=== PATIENT | male | born 1995 | race Caucasian/White ===

== ENCOUNTER 2017-06-28 21:29 | Emergency (ER) | payer MEDICAID, SELFPAY ==
[2017-06-28 21:30] VITALS: BP 137/95; PULSE 91; RESP 18; TEMP 36.6; O2SAT 97; BMI 27.8
--- NOTE | 2017-06-28 22:26 | RAD_ITS ---
STUDY: X-RAY CHEST REASON FOR EXAM: Male, 22 years old. Shortness of breath, cough TECHNIQUE: Frontal and lateral views of the chest. COMPARISON: None. FINDINGS: The lungs are clear and expanded. There is no demonstrated pleural abnormality. Normal size heart. Normal mediastinum and anne. Normal visualized pulmonary arteries. Normal visualized aortic arch and descending thoracic aorta. Normal visualized thoracic spine. Normal visualized ribs, clavicles, and shoulders. There is no demonstrated abnormality of the visualized soft tissue structures of the upper abdomen. RAD/Chest PA and Lateral IMPRESSION: No acute cardiopulmonary disease. Electronically Signed: Arcadio Cortez DO at 23:45 EDT , Service support ,
[2017-06-28] MEDS: Famotidine 20 MG Tablet 40 MG PO (23:22)
[2017-06-28 23:39] LABS: Absolute Lymphocyte Count 3.42 X10^3/ul (0.83-4.51); Absolute Neutrophil Count 3.1 X10^3/uL (2.0-7.7); Basophil# 0.03 X10^3/uL; Basophil% 0.4 % (0-1); Eosinophil# 0.23 X10^3/uL; Eosinophils% 3.1 % (0-5); Hematocrit 45.1 % (40-54); Lymphocyte # 3.42 X10^3/ul (4.0); Lymphocyte % 45.5 % (19-41); Mean Corp Hgb Conc 33.3 g/gl (32-36); Mean Corpuscular Hgb 29.9 pg (27.0-32.0); Mean Corpuscular Volume 89.8 fL (80-94); Mean Platelet Vol. 9.4 fl (6.2-12.0); Monocyte# 0.69 X10^3/uL; Monocyte% 9.2 % (0-10); Neutrophil # 3.13 X10^3/uL (2.7-7.7); Neutrophil % 41.5 % (47-70); Platelet Count 232 K/mm3 (150-450); RBC Distribution Width CV 12.6 % (11.6-14.6); RBC Distribution Width SD 40.6 fl (35.1-43.9); Red Blood Count 5.02 M/mm3 (4.6-6.2); White Blood Count 7.5 K/mm3 (4.4-11.0)
[2017-06-28 23:42] LABS: POSITIVE COUNT NO; POSITIVE DIFFERENTIAL NO; POSITIVE MORPHOLOGY NO
[2017-06-28 23:49] LABS: Anion Gap 6 (5-15); BUN 13 mg/dL (7-18); Calcium,Total 8.9 mg/dL (8.5-10.1); Chloride 108 mmol/L (98-107); Creatinine, Serum 0.76 mg/dL (0.70-1.30); EST Glomerular Filtration Rate 138 mL/min (>60); Est Glom Filt Rate - Afr Amer 167 mL/min (>60); Estimated Creatinine Clearance 165.13 ml/min; Glucose 96 mg/dL (74-106); Potassium 3.9 mmol/L (3.5-5.1); Sodium Level 141 mmol/L (136-145)
--- NOTE | 2017-06-28 23:54 | ED.VISSUMM ---
- ER Visit Summary Date of Service: 06/28/17 Chief Complaint: Cough History of Present Illness: The patient is a [address] Wesley. He reports that he has had a cough for the past year. Is worsened over the past month. Is now productive of white, thick sputum without blood. He denies any fever or chills. Reports that he has been wheezing. He does not have an inhaler that he uses. States he has a sore throat is 4 out of 10 severity. Patient reports that last week he woke from sleep and was unable to breathe in for a period of time. Physical Examination: Vitals: Stable. Afebrile. General: Well-nourished and well-developed. Head: Normocephalic atraumatic. Neck: Supple, no lymphadenopathy. No JVD. Nontender. Cardiovascular: Regular rate and rhythm. No murmurs. Respiratory: No respiratory distress. Clear to auscultation bilaterally. Abdominal: Soft, nontender, nondistended, normal bowel sounds. No guarding, rebound, or peritoneal signs. Back: Nontender. Extremities: Nontender, no edema. Skin: Normal color, no rash. Neurologic: Alert and oriented ?3. Cranial nerves II through XII are intact. Normal strength and sensation. Psych: Normal affect. Test Results: Chest x-ray is normal. CBC is marked for segment neutrophils of 42 lymphs at 46. Chem-7 is more for chloride 108. Emergency Department Course and Treatment: Had a prolonged discussion the patient that it sounds as though the episode sleeping last week was from laryngeal spasm. He is given a dose of Pepcid here. Treatment Plan: Patient will be discharged on Zantac and an albuterol MDI. He is instructed to stop smoking. Follow-up his primary care physician 1 week if not improving. Return to the emergency department for any worsening symptoms. Disposition: To home in improved and stable condition. Impression: 1. Chronic cough. This note was generated with [employer] dictation software. It may contain incorrect words, spelling, and punctuation that were not noted in review of the chart prior to signing ED Disposition - Plan for ED Patient: Disposition: Home or Assisted Living Chief Complaint: Cough Instructions: ED Cough Chronic Cause Unkn Prescriptions: Albuterol Inhaler [Ventolin Hfa] 1 - 2 puff INHALATION Q4H PRN PRN #1 inhaler PRN Reason: Wheezing Ranitidine HCl [Zantac] 300 mg PO DAILY #30 tablet Referrals: Rosita Anders MD [Primary Care Provider] - 1 Week if not improving
[2017-06-29 00:09] VITALS: BP 117/84; PULSE 77; RESP 18; O2SAT 96
== END 2017-06-29 00:10 | disposition home or self-care (01) ==
PROVIDERS: Emergency Provider Emergency Medicine; Family Provider Family Medicine; PCP Family Medicine
DX: R05 Cough (principal); J02.9 Acute pharyngitis, unspecified; R06.00 Dyspnea, unspecified; F17.200 Nicotine dependence, unspecified, uncomplicated
CPT/HCPCS: 36415; 71046; 80048; 85025; 99282

== ENCOUNTER 2017-12-09 04:47 | Emergency (ER) | payer SELFPAY ==
[2017-12-09 04:48] VITALS: BP 154/86; PULSE 94; RESP 16; TEMP 37.2; O2SAT 96; BMI 32.4
--- NOTE | 2017-12-09 05:05 | ED.DCSUM_ITS ---
- ER Visit Summary Date of Service: 12/09/17 Chief Complaint: [] Headache nausea muscle aches History of Present Illness: The patient is a 22 M [] constitutional symptoms for last 2 days gradual onset intermittent. He has had sore throat frontal headache that is mild and aching. Muscle aches joint pains sore throat. He had one episode of emesis tonight. He has been using ibuprofen. He had intermittent fever. He does have sick contacts Physical Examination: [] Vital signs reviewed General: Well-nourished well-developed Head: Normocephalic atraumatic Eyes: Pupils equal round and reactive to light extraocular movements intact ENT: TMs clear no hemotympanum no trauma Neck: Nontender full range of motion Cardiovascular: Regular rate rhythm no murmurs normal S1-S2 Respiratory: No distress clear to auscultation bilaterally chest nontender Abdomen: Soft nontender nondistended normal bowel sounds no masses Back: Nontender no CVA tenderness Extremities: Nontender active range of motion ?4 extremities no trauma Skin: Normal color no trauma Neuro alert oriented cranial nerves II through XII intact normal strength sensation reflexes Test Results: [] Emergency Department Course and Treatment: [] This time I feel the patient has a viral syndrome. He did not want anything for anti-inflammatory. He broke his temperature. It is negative. Resting comfortably. Throat and ears normal lungs are clear. Heart exam normal. Patient given oral Zofran. Will be given a prescription for Zofran and will follow-up Treatment Plan: [] Disposition: [] Impression: [] Viral syndrome This note was generated with [employer] dictation software. It may contain incorrect words, spelling, and punctuation that were not noted in review of the chart prior to signing ED Disposition - Plan for ED Patient: Chief Complaint: General Illness Referrals: Rosita Anders MD [Primary Care Provider] -
--- NOTE | 2017-12-09 05:05 | ED.DEP ---
ED Disposition - Plan for ED Patient: Disposition: Home or Assisted Living Chief Complaint: General Illness Instructions: ED Viral Syndrome Prescriptions: Ondansetron [Zofran Odt] 4 mg PO Q8H PRN PRN #10 tab PRN Reason: Nausea Referrals: Rosita Anders MD [Primary Care Provider] -
[2017-12-09] MEDS: Ondansetron ODT 4 MG Tablet 8 MG PO (05:11)
[2017-12-09 05:13] VITALS: BP 154/86; PULSE 94; RESP 16; O2SAT 94
== END 2017-12-09 05:14 | disposition home or self-care (01) ==
PROVIDERS: Emergency Provider Emergency Medicine; Family Provider Family Medicine; PCP Family Medicine
DX: B34.9 Viral infection, unspecified (principal); J02.9 Acute pharyngitis, unspecified; R11.0 Nausea; R51 Headache; M79.1 Myalgia; Z72.0 Tobacco use
CPT/HCPCS: 99283

== ENCOUNTER 2018-05-02 18:23 | Emergency (ER) | payer OTHER, SELFPAY ==
[2018-05-02 18:23] VITALS: BP 155/75; PULSE 106; RESP 16; TEMP 37.2; O2SAT 97; BMI 30.7
--- NOTE | 2018-05-02 19:13 | EKG12_ITS ---
Test Reason : CP Blood Pressure : / mmHG Vent. Rate : 093 BPM Atrial Rate : 093 BPM P-R Int : 144 ms QRS Dur : 092 ms QT Int : 342 ms P-R-T Axes : 049 073 024 degrees QTc Int : 425 ms Normal sinus rhythm Normal ECG Confirmed by JAYLIN CARRINGTON, HAILEY ([id number]), city editor CHINYERE KENDALL ([id number]) on 05/08/2018 11:15:21 AM Referred By: DAYAN MANZANO Confirmed By:HAILEY MOSQUEDA MD
--- NOTE | 2018-05-02 19:13 | ED.VISSUMM ---
- ER Visit Summary Date of Service: 05/02/18 Chief Complaint: Right leg pain History of Present Illness: The patient is a 22 M presenting with right leg pain. He states this started this morning he woke up with pain in his right lower leg. He denies injury. He is a box truck washer. Denies other PE/DVT risk factors. He also complains of chest pain that has been intermittent for the past 8 months. He denies shortness of breath. He is a smoker. Denies other complaints. Physical Examination: Vitals are stable. Patient is afebrile. Alert no acute distress. HEENT exam is unremarkable. Neck is supple. Lungs are clear and equal bilaterally. Heart is regular rate and rhythm. Abdomen is soft nontender nondistended. Extremities mild right calf tenderness. No erythema or warmth. No swelling. Normal distal pulses. Active full range of motion. Skin is warm and dry. No focal neurologic deficit. Remainder of exam is unremarkable. Emergency Department Course and Treatment: EKG is sinus rate of 93 with no acute ischemic changes. Chest x-ray shows no acute process. Ultrasound of the right lower extremity shows no evidence of DVT. CBC, chemistries unremarkable. Troponin is negative. D-dimer negative. On reevaluation, patient is resting comfortably. He states pain is positional. He is advised to use NSAIDs. Advised to follow with primary care physician. Advised to return to ED if worsening complaints. Disposition: Discharge home Impression: Right leg pain This note was generated with [facility] dictation software. It may contain incorrect words, spelling, and punctuation that were not noted in review of the chart prior to signing ED Disposition - Plan for ED Patient: Instructions: ED Muscle Pain Leg Cramps Referrals: Raul Rosario MD [STAFF PHYSICIAN] -
--- NOTE | 2018-05-02 19:18 | US_ITS ---
STUDY: VENOUS DOPPLER ULTRASOUND - RIGHT LOWER EXTREMITY REASON FOR EXAM: Male, 22 years old. Anterior foot and medial thigh pain. TECHNIQUE: Ultrasound evaluation of the deep vein system to include nguyễn-scale imaging and compression was performed. Nguyễn-scale imaging and Doppler sonographic evaluation, including duplex spectral analysis and qualitative color flow sonography, was performed. COMPARISON: None. FINDINGS: Common femoral, femoral, and popliteal veins are patent with no evidence of luminal thrombus. Deep venous structures respond normally to compression and augmentation maneuvers. Normal color Doppler. Visualized calf veins are patent. US/Venous Duplex Imag/Limited/Uni IMPRESSION: Normal venous Doppler ultrasound of the lower extremity. Electronically Signed: Erin Dixon MD at 20:24 EST Tel , Service support ,
--- NOTE | 2018-05-02 19:41 | RAD_ITS ---
STUDY: X-RAY CHEST REASON FOR EXAM: Male, 22 years old. Chest pain. TECHNIQUE: Portable chest. COMPARISON: 06/28/2017. FINDINGS: The lungs are clear and expanded. There is no demonstrated pleural abnormality. Normal size heart. Normal mediastinum and anne. Normal visualized pulmonary arteries. Normal visualized aortic arch and descending thoracic aorta. Normal visualized thoracic spine. Normal visualized ribs, clavicles, and shoulders. There is no demonstrated abnormality of the visualized soft tissue structures of the upper abdomen. RAD/Chest 1 View (Portable) IMPRESSION: Normal x-ray examination of the chest. Electronically Signed: Erin Dixon MD at 20:21 EST Tel , Service support ,
[2018-05-02 19:45] LABS: Absolute Neutrophil Count 5.4 X10^3/uL (2.0-7.7); Basophil# 0.04 X10^3/uL; Basophil% 0.4 % (0-1); Eosinophil# 0.23 X10^3/uL; Eosinophils% 2.2 % (0-5); Hematocrit 46.4 % (40-54); Hemoglobin 15.5 g/dl (13.0-16.5); Lymphocyte % 34.9 % (19-41); Mean Corp Hgb Conc 33.4 g/gl (32-36); Mean Corpuscular Hgb 29.8 pg (27.0-32.0); Mean Corpuscular Volume 89.2 fL (80-94); Mean Platelet Vol. 9.7 fl (6.2-12.0); Monocyte% 9.7 % (0-10); Neutrophil # 5.42 X10^3/uL (2.7-7.7); Neutrophil % 52.6 % (47-70); Platelet Count 267 K/mm3 (150-450); RBC Distribution Width CV 12.6 % (11.6-14.6); RBC Distribution Width SD 40.2 fl (35.1-43.9); White Blood Count 10.3 K/mm3 (4.4-11.0)
[2018-05-02 19:47] LABS: Anion Gap 9 (5-15); BUN 13 mg/dL (7-18); BUN/Creat Ratio 14.6 RATIO (10-20); Chloride 106 mmol/L (98-107); Creatinine, Serum 0.89 mg/dL (0.70-1.30); EST Glomerular Filtration Rate 115 mL/min (>60); Est Glom Filt Rate - Afr Amer 139 mL/min (>60); Estimated Creatinine Clearance 141.01 ml/min; Glucose 79 mg/dL (74-106); POSITIVE COUNT NO; POSITIVE DIFFERENTIAL NO; POSITIVE MORPHOLOGY NO; Sodium Level 142 mmol/L (136-145)
[2018-05-02 19:58] LABS: D-Dimer Quantitative (DVT/PE) < 0.27 FEU/ug/m (0.27-0.49)
--- NOTE | 2018-05-02 20:43 | ED.DEP ---
ED Disposition - Plan for ED Patient: Instructions: ED Muscle Pain Leg Cramps Referrals: Raul Rosario MD [STAFF PHYSICIAN] -
[2018-05-02 21:24] VITALS: BP 142/65; PULSE 90; RESP 18; O2SAT 96
== END 2018-05-02 21:24 | disposition home or self-care (01) ==
LOC: ED 20:12
PROVIDERS: Emergency Provider Emergency Medicine
DX: M79.604 Pain in right leg (principal); R07.9 Chest pain, unspecified; F17.200 Nicotine dependence, unspecified, uncomplicated
CPT/HCPCS: 71045; 80048; 84484; 85025; 85379; 93005; 93971; 99284; A4216

== ENCOUNTER 2018-10-07 21:27 | Emergency (ER) | payer OTHER, SELFPAY ==
[2018-10-07 21:28] VITALS: BP 160/85; PULSE 86; RESP 18; TEMP 36.2; O2SAT 97; BMI 33.8
--- NOTE | 2018-10-07 21:41 | ED.VIS.GEN ---
History of Present Illness Chief Complaint: Sore Throat Detail of Chief Complaint: Sore throat, cough Informant: Patient Onset: Days - 9 days Context: Gradual Onset Timing: Continuous Current Severity: Mild Maximum Severity: Moderate Narrative: Patient presents with a 9-day history of sore throat, cough with yellow sputum production. Patient denies fever. He states mid last week he had some joint aches and pains that have now resolved. He is been using some numbing throat spray, but no other [id number] medications. Past Medical History - Allergies and Home Meds Allergies/Adverse Reactions: Allergies No Known Allergies Allergy (Verified 10/07/18 21:30) Primary Care Physician: Care Physician,No Primary [Primary Care Provider] - Prior records reviewed: Yes Past Medical History: - - Reviewed Smoking Status: Current every day smoker Review of Systems General: Denies: Chills, Fever Eyes: Denies: Visual changes - bilaterally ENT: Reports: Sore throat. Denies: Bilateral ear pain Cardiovascular: Denies: Chest pain, Palpitations Respiratory: Reports: Cough, Sputum, - - No wheezing Gastrointestinal: Denies: Abdominal pain, Nausea, Vomiting, Diarrhea Musculoskeletal: Denies: Myalgias Skin: Reports: - - Red area to right lower back Neurological: Denies: Headache Physical Exam Vital Signs/Narrative: Vital Signs Temp Pulse Resp BP Pulse Ox 10/07/18 21:28 97.2 F L 86 18 160/85 H 97 Inital Vital Signs reviewed: Yes General: Well nourished, Well developed Eyes: Perrl, EOMI ENT: Moist mucous membranes, No rhinorrhea, TM's clear, - - Bilateral tonsillar erythema with 1+ tonsils. Uvula midline. No exudate noted at this time. Neck: Supple. Negative for: No lymphadenopathy - Mild bilateral anterior cervical lymphadenopathy. Cardiovascular: Regular rate, Regular rhythm Respiratory: No distress, CTA bilaterally Abdomen: Soft, Nontender Back: Nontender Extremities: Nontender, No edema Skin: - - Small area of folliculitis measuring approximately 2 cm in diameter in the right lower back with mild skin induration. No sign of abscess. Neurological: Alert, Oriented x3 Psychological: Normal affect Diagnostic/Tx/Re-eval - Medical Decision Making Patient has had persistent symptoms for 9 days. He will be covered with a course of Zithromax which will cover both his pharyngitis as well as his upper respiratory infection and cough. He does not feels if he is wheezing. He will be referred to local PCP to establish primary care. ED Disposition - Plan for ED Patient: Disposition: Home or Assisted Living Instructions: BRONCHITIS, Antiobiotic Treatment (Adult) Prescriptions: Azithromycin [Zithromax] 250 mg PO DAILY #4 tablet Referrals: Angelika Angel MD [STAFF PHYSICIAN] - As Needed
[2018-10-07] MEDS: Azithromycin 250 MG Tablet 500 MG PO (21:57)
[2018-10-07 22:00] VITALS: RESP 16
--- NOTE | 2018-10-07 22:00 | ED.RN ---
REVIEWED D/C INSTRUCTIONS, FOLLOW UP CARE, PRESCRIPTION, AND S/S THAT WOULD WARRANT A RETURN TO THE ED WITH PT. PT VERBALIZED AN UNDERSTANDING AND DENIES FURTHER QUESTIONS FOR THIS RN. PT SKIN P/W/D, RESP EVEN AND UNLABORED, PT A&O X 3, NO DISTRESS NOTED. PT AMBULATED OUT OF ED, GAIT STEADY.
== END 2018-10-07 22:02 | disposition home or self-care (01) ==
LOC: ED 21:57
PROVIDERS: Emergency Provider Emergency Medicine
DX: J06.9 Acute upper respiratory infection, unspecified (principal); J02.9 Acute pharyngitis, unspecified; R05 Cough; L73.9 Follicular disorder, unspecified; F17.200 Nicotine dependence, unspecified, uncomplicated
CPT/HCPCS: 99283

== ENCOUNTER 2019-06-02 20:25 | Emergency (ER) | payer OTHER, SELFPAY ==
[2019-06-02 20:25] VITALS: BP 125/74; PULSE 105; RESP 16; TEMP 36.8; O2SAT 98; BMI 34.7
--- NOTE | 2019-06-02 21:36 | ED.DCSUM_ITS ---
History of Present Illness Chief Complaint: Lower Extremity Injury Detail of Chief Complaint: Redness and swelling left leg Informant: Patient Onset: Days - 3 days Context: Gradual Onset Current Severity: Mild Maximum Severity: Moderate Narrative: Patient presents with redness and mild swelling to the left medial thigh. He states he first noted redness 3 days ago. He feels that it was a little worse yesterday than it is today. Has not had fever or chills. He denies any known injury. Does not remember a bite to the area. He denies personal or family history of blood clots. Past Medical History - Allergies and Home Meds Allergies/Adverse Reactions: Allergies No Known Allergies Allergy (Verified 06/02/19 20:28) Primary Care Physician: Alex Esposito MD [STAFF PHYSICIAN] - As Needed Past Medical History: None Smoking Status: Never smoker Review of Systems General: Denies: Chills, Fever Eyes: Denies: Visual changes - bilaterally ENT: Denies: Bilateral ear pain Cardiovascular: Denies: Chest pain Respiratory: Denies: Dyspnea, Cough Gastrointestinal: Denies: Abdominal pain, Nausea, Vomiting, Diarrhea Genitourinary: Denies: Dysuria Musculoskeletal: Reports: Swelling, Extremity Pain Skin: Reports: Rash Neurological: Denies: Headache Hematologic: Denies: Easy bruising, Easy bleeding Allergy: Denies: Uticaria Physical Exam Vital Signs/Narrative: Vital Signs Temp Pulse Resp BP Pulse Ox 06/02/19 20:25 98.2 F 105 H 16 125/74 H 98 Inital Vital Signs reviewed: Yes General: Well nourished, Well developed Head: Normocephalic ENT: Moist mucous membranes Neck: Supple Cardiovascular: Regular rate, Regular rhythm, No murmurs Respiratory: No distress, CTA bilaterally Abdomen: Soft, Nontender Extremities: - - Large area of erythema on the medial and posterior left thigh. Few areas of folliculitis are noted on the posterior thigh. No open draining wounds. Neurological: Alert, Oriented x3, Normal Strength, Normal Sensation Psychological: Normal affect Diagnostic/Tx/Re-eval - Medical Decision Making Area of erythema is outlined with a surgical marker. Patient be started on Bactrim and Keflex. I also recommend he come in tomorrow for an ultrasound of his leg to ensure no underlying DVT. ED Disposition - Plan for ED Patient: Disposition: Home or Assisted Living Diagnosis: Cellulitis Instructions: Cellulitis Prescriptions: Smz/Tmp Ds [Bactrim Ds] 1 tab PO BID #20 tab Transmission Status: Received by [id number] Cephalexin [Keflex] 500 mg PO Q6 #40 cap Transmission Status: Received by [id number] Referrals: Alex Esposito MD [STAFF PHYSICIAN] - As Needed
[2019-06-02 21:45] VITALS: RESP 16
[2019-06-02] MEDS: Cephalexin 250 MG Capsule 500 MG PO (21:45)
[2019-06-02] MEDS: Smz/Tmp Ds Tablet 1 TABLET PO (21:45)
== END 2019-06-02 21:56 | disposition home or self-care (01) ==
LOC: ED 21:50
PROVIDERS: Emergency Provider Emergency Medicine
DX: L03.116 Cellulitis of left lower limb (principal); L73.9 Follicular disorder, unspecified
CPT/HCPCS: 99283

== ENCOUNTER 2021-03-29 18:52 | Emergency (ER) | payer OTHER, SELFPAY ==
[2021-03-29 18:52] VITALS: BP 159/97; PULSE 99; RESP 16; TEMP 36.5; O2SAT 100; BMI 30.1
--- NOTE | 2021-03-29 20:10 | ED.VIS.CHEST ---
HPI History of Present Illness Chief Complaint: Palpitations Informant: patient Onset/Context/Timing Onset: Days Activity at onset: sudden Timing: Intermittent Worsened By: Nothing Relieved By: Nothing Associated Symptoms: Negative for Nausea, Vomiting, Diaphoresis, Dyspnea, Cough, Fever, Lightheadedness and Acid Reflux Narrative Narrative: 25-year-old male no seen past medical history of the prior echocardiogram for heart murmur. States had palpitations for the last 3 days intermittent. Worse today around 530. No chest pain. No shortness of breath. No syncope. Prior Similar Symptoms: Yes Recent Illness/Hospitalization: No CVD Risk Factors: Positive for Smoking; Negative for Hypertension, Diabetes and Hypercholesterolemia PE Risk Factors: Negative for Recent Travel/Surgery, Recent Immobilization, Prior DVT or PE, Cancer and OCP + Smoking + >/=35 PFSH PFSH Medical History (Updated 03/29/21 @ 22:[address] Eduardo Yoder MD) Heart murmur Medical History no medical history no medical history Home Medications NK 03/29/21 [History Last Taken Unknown] Allergy/AdvReac Type Severity Reaction Status Date / Time No Known Allergies Allergy Verified 03/29/21 20:17 Surgical History no surgical history Social History Smoking Status: Current every day smoker tobacco type: cigarettes and e-cigarettes ROS ROS ED ROS Narrative Palpitations. Review of Systems ROS Unobtainable: Denies due to encephalopathy Constitutional Constitutional ED: Denies chills, fever(s), subjective or sweats Eyes Eyes: Denies none, blurry vision or change in vision ENT ENT ED: Denies ear pain or sore throat Cardiovascular Cardiovascular: Reports as per HPI and palpitations; Denies chest pain Respiratory/Chest Respiratory/Chest: Denies cough, dyspnea or sputum Gastrointestinal Gastrointestinal: Denies abdominal pain, diarrhea, nausea or vomiting Genitourinary Genitourinary ED: Denies dysuria or hematuria Musculoskeletal Musculoskeletal: Denies arthralgias or myalgias Integumentary Denies rash Neurologic Neurologic: Denies headache(s) Psychiatric Psychiatric: Denies depression Endocrine Endocrinology: Denies polyuria Hematologic/Lymphatic Hematologic/Lymphatic: Denies easy bruising Allergic/Immunologic Allergic/Immunologic ED: Denies urticaria EXAM Physical Exam Narrative Exam Narrative: 25-year-old male no acute distress. Vital signs stable he is afebrile he does not look septic or toxic. His pulse ox on percent on room air no hypoxia. HEENT exam unremarkable. Neck nontender no JVD. Lungs are clear. Heart regular rhythm. Abdomen soft nontender. Moving all 4 extremities. Calves are nontender without edema or cords. Neurologically is awake and alert with no focal motor deficits. Const Vital Signs: 03/29/21 18:52 03/29/21 20:18 03/29/21 20:52 Temperature 97.7 F L Temperature Source Temporal Pulse Rate 99 66 Respiratory Rate 16 16 Respiratory Effort Normal Respiratory Pattern Normal Blood Pressure 159/97 H 138/76 H Blood Pressure Mean 117 96 Pulse Ox 100 97 Oxygen Delivery Method Room Air Room Air 03/29/21 22:00 Temperature Temperature Source Pulse Rate 87 Respiratory Rate 16 Respiratory Effort Respiratory Pattern Blood Pressure 129/72 H Blood Pressure Mean 91 Pulse Ox 98 Oxygen Delivery Method Room Air Positive well nourished, well developed, obese and unkempt; Negative for cachectic or contractures General Appearance ED: unkempt, well developed and NAD; Negative for cachectic, contractures or pallor Nutritional Appearance: obese; Negative for cachectic HEENT Reports moist mucous membranes normocephalic and atraumatic Eyes PERRL and EOMs intact bilaterally General Eye ED: Negative for pale conjunctiva or scleral icterus Neck no lymphadenopathy, supple and no JVD General: Negative for tenderness Chest Wall inspection of chest normal and palpation of chest normal Resp normal respiratory effort and clear to auscultation bilaterally Effort and Inspection: respiratory distress Auscultation: Negative for rales, rhonchi or wheezes Cardio regular rate, regular rhythm, S1 normal heart sound, S2 normal heart sound and no murmurs Rate: Negative for bradycardia or tachycardic GI normal to inspection, nondistended, normoactive bowel sounds, soft to palpation, non-tender, non-distended and no masses; Negative for hepatosplenomegaly Auscultation: Negative for hyperactive bowel sounds Back/Spine no CVA tenderness General Back: Negative for CVA tenderness Extremity normal to inspection General Extremety ED: Negative for edema or tenderness General Extremity: Negative for edema Neuro oriented x3 Sensorium / Orientation: awake, alert, oriented to person, oriented to place and oriented to time Motor Exam: strength 5/5 throughout Psych mental status grossly normal Appearance: unkempt Attitude: No agitated Mood & Affect: Negative for depressed or tearful Skin no rashes or lesions noted and no wounds General Skin Exam: Negative for jaundice or pallor MDM MDM MDM Narrative Medical decision making narrative: 25-year-old with reported palpitations. Normal exam. Will undergo work-up. His exam is benign will be discharged home. Repeat exam patient is doing well at 10:39 PM to be discharged to home. Lab Data Attestation: I reviewed the patient's lab results. Lab results narrative: Electrolytes normal gap 11. Normal BUN/creatinine. Normal glucose. CBC showed a white count of 9. Hemoglobin 16. Labs: Laboratory Results - last 24 hr 03/29/21 03/29/21 03/29/21 20:32 20:32 21:05 WBC Cancelled Corrected WBC Cancelled RBC Cancelled Hgb Cancelled Hct Cancelled MCV Cancelled MCH Cancelled MCHC Cancelled RDW Std Deviation Cancelled RDW Coeff of Rachell Cancelled Plt Count Cancelled MPV Cancelled Diff Path Review Cancelled Sodium Cancelled 139 Potassium Cancelled 3.9 Chloride Cancelled 102 Carbon Dioxide Cancelled 26.0 Anion Gap Cancelled 11 BUN Cancelled 17 Creatinine Cancelled 0.83 Estim Creat Clear Calc Cancelled 147.42 Est GFR (MDRD) Af Amer Cancelled 147 Est GFR (MDRD) Non-Af Cancelled 122 BUN/Creatinine Ratio Cancelled 20.6 H Glucose Cancelled 98 Calcium Cancelled 9.7 03/29/21 21:05 WBC 9.5 Corrected WBC RBC 5.40 Hgb 16.7 H Hct 47.4 MCV 87.8 MCH 30.9 MCHC 35.2 RDW Std Deviation 37.2 RDW Coeff of Rachell 11.6 Plt Count 279 MPV 9.2 Diff Path Review Sodium Potassium Chloride Carbon Dioxide Anion Gap BUN Creatinine Estim Creat Clear Calc Est GFR (MDRD) Af Amer Est GFR (MDRD) Non-Af BUN/Creatinine Ratio Glucose Calcium Radiography Chest X-Ray - ED: 1 View, Read by ED Physician, Normal, Heart, Lungs, Mediastinum, Bony Structures and No Acute Disease Diagnostic Testing: Clinical Impression(s) from Imaging Studies Chest X-Ray 03/29/21 20:40 IMPRESSION: No acute cardiopulmonary disease or major interval change. Electronically Signed: Skip Pollock DO at 21:09 EST Tel [phone], Service support , Single, portable, view chest x-ray showed no acute abnormality interpreted by myself and radiologist. Rhythm Strip Rhythm Strip: Sinus Rhythm Rate: 91 Ectopy: None EKG Initial EKG: Attestation: I personally reviewed and interpreted this EKG as follows: Interpretation: Sinus Rhythm and No Acute Injury Pattern Comments: Normal sinus rhythm rate 91 no acute signs of [place] nor ischemia. Discharge Plan Triage Chief Complaint: Palpitations ED Provider: Eduardo Yoder Dx/Rx/DC Orders Clinical Impression: Palpitation Instructions: ED Palpitations Prescriptions: No Action NK RF: 0 Primary Care Provider: Constance Mcelroy NP Referrals: Constance Mcelroy NP, [employer]EL[employer]ISTER OPERATOR-C [Primary Care Provider] - 1 Week if not improving Activity Restrictions/Additional Instructions: Plenty of fluids and rest. Follow-up with your primary care provider if not improving. Your labs, chest x-ray and EKG today were all normal. Disposition Disposition: Home, Self Care
--- NOTE | 2021-03-29 20:40 | RAD_ITS ---
STUDY: X-RAY CHEST REASON FOR EXAM: Male, 25 years old. Palpitations. TECHNIQUE: Single AP portable view of the chest. COMPARISON: 05/02/2018. FINDINGS: The lungs are clear and expanded. There is no demonstrated pleural abnormality. Normal size heart. Normal mediastinum and anne. Normal visualized pulmonary arteries. Normal visualized aortic arch and descending thoracic aorta. Normal visualized thoracic spine. Normal visualized ribs, clavicles, and shoulders. There is no demonstrated abnormality of the visualized soft tissue structures of the upper abdomen. RAD/Chest 1 View (Portable) IMPRESSION: No acute cardiopulmonary disease or major interval change. Electronically Signed: Skip Pollock DO at 21:09 EST Tel [phone], Service support ,
--- NOTE | 2021-03-29 20:50 | EKG12_ITS ---
Test Reason : PALPS Blood Pressure : / mmHG Vent. Rate : 091 BPM Atrial Rate : 091 BPM P-R Int : 152 ms QRS Dur : 096 ms QT Int : 338 ms P-R-T Axes : 065 084 047 degrees QTc Int : 415 ms Normal sinus rhythm Normal ECG Confirmed by ALYSSA CARRINGTON, KATHYA ([id number]), production editor DONITA PHAN ([id number]) on 03/31/2021 10:44:51 AM Referred By: DEV Confirmed By:KATHYA SHAH MD
[2021-03-29 20:52] VITALS: BP 138/76; PULSE 66; RESP 16; O2SAT 97
[2021-03-29 21:14] LABS: Hematocrit 47.4 % (40-54); Hemoglobin 16.7 g/dL (13.0-16.5); Mean Corp Hgb Conc 35.2 g/dL (32-36); Mean Corpuscular Hgb 30.9 pg (27.0-32.0); Mean Corpuscular Volume 87.8 fL (80-94); Mean Platelet Vol. 9.2 fl (6.2-12.0); Platelet Count 279 K/mm3 (150-450); RBC Distribution Width CV 11.6 % (11.6-14.6); RBC Distribution Width SD 37.2 fl (35.1-43.9); White Blood Count 9.5 K/mm3 (4.4-11.0)
[2021-03-29 21:27] LABS: Anion Gap 11 (5-15); BUN 17 mg/dL (7-18); BUN/Creat Ratio 20.6 RATIO (10-20); Calcium,Total 9.7 mg/dL (8.5-10.1); Chloride 102 mmol/L (98-107); Creatinine, Serum 0.83 mg/dL (0.70-1.30); EST Glomerular Filtration Rate 122 mL/min (>60); Est Glom Filt Rate - Afr Amer 147 mL/min (>60); Estimated Creatinine Clearance 147.42 ml/min; Glucose 98 mg/dL (74-106); Potassium 3.9 mmol/L (3.5-5.1); Sodium Level 139 mmol/L (136-145)
[2021-03-29 22:00] VITALS: BP 129/72; PULSE 87; RESP 16; O2SAT 98
[2021-03-29 22:47] VITALS: BP 131/74; PULSE 62; RESP 15; O2SAT 98
== END 2021-03-29 22:48 | disposition home or self-care (01) ==
PROVIDERS: Emergency Provider Emergency Medicine; PCP Nurse Practitioner Primary Care; Visit Provider Emergency Medicine
DX: R00.2 Palpitations (principal); F17.210 Nicotine dependence, cigarettes, uncomplicated; F17.290 Nicotine dependence, other tobacco product, uncomplicated; E66.9 Obesity, unspecified; Z68.30 Body mass index [BMI] 30.0-30.9, adult
CPT/HCPCS: 36415; 71045; 80048; 85027; 93005; 99283; A4216

== ENCOUNTER 2021-12-23 22:06 | Emergency (ER) | payer OTHER, SELFPAY ==
[2021-12-23 22:08] VITALS: BP 114/68; PULSE 84; RESP 18; TEMP 36.6; O2SAT 97; BMI 32.8
[2021-12-23 22:24] VITALS: BP 133/57; PULSE 83; RESP 20; TEMP 36.8; O2SAT 95
[2021-12-23 22:26] VITALS: O2SAT 95
--- NOTE | 2021-12-23 22:51 | RAD_ITS ---
STUDY: X-RAY CHEST REASON FOR EXAM: Male, 26 years old. Shortness of breath. TECHNIQUE: Single AP portable view of the chest. COMPARISON: 03/29/2019 FINDINGS: Slightly decreased inspiratory effort when compared to prior study. No acute infiltrate or mass. There is no demonstrated pleural abnormality. Normal size heart. Normal mediastinum and anne. Normal visualized pulmonary arteries. Normal visualized aortic arch and descending thoracic aorta. Normal visualized thoracic spine. Normal visualized ribs, clavicles, and shoulders. There is no demonstrated abnormality of the visualized soft tissue structures of the upper abdomen. RAD/Chest 1 View (Portable) IMPRESSION: No acute cardiopulmonary disease or major interval change Electronically Signed: Skip Pollock DO at 23:10 EDT ,
--- NOTE | 2021-12-23 22:57 | EDS_ITS ---
HPI History of Present Illness Chief Complaint: Shortness of Breath Narrative Narrative: Patient presents with multiple arthralgias, shortness of breath, runny nose, and sore throat that is getting worse today. He denies any fever. No significant past medical history. He is a smoker. He states that he is becoming more fatigued and short of breath throughout the day. He did not receive any COVID immunizations. [facility] Medical History Heart murmur Mitral valve prolapse Home Medications albuterol sulfate 90 mcg/actuation aerosol inhaler (Ventolin HFA) 1 - 2 puff inhalation Q4H PRN PRN Wheezing #1 ea 12/23/21 [Rx Last Taken Unknown] Allergy/AdvReac Type Severity Reaction Status Date / Time No Known Allergies Allergy Verified 12/23/21 22:30 Social History Smoking Status: Current every day smoker tobacco type: cigarettes and e- cigarettes ROS ROS ED ROS Narrative Constitutional: No fever, no chills. Mild fatigue. HEENT positive sore throat. No neck pain. No loss of vision. Positive rhinorrhea. Cardiovascular: No chest pain. No palpitations. No pedal edema. Respiratory: Positive cough, increasing shortness of breath. Abdominal: No abdominal pain. No nausea. No vomiting. Genitourinary: No dysuria. No hematuria. Musculoskeletal: No myalgias. Multiple arthralgias. Neurologic: No headaches. No dizziness. No lightheadedness. Skin: No rash. No change in color. Psychiatric: No depression. No anxiety. EXAM Physical Exam Narrative Exam Narrative: Afebrile. Vital signs noted. HEENT: Normocephalic. Atraumatic. PERRL, EOMI. Neck soft and supple. No point tenderness or step off. Cardiovascular: Regular rate and rhythm. No murmurs, rubs, or gallops appreciated. Respiratory: No tachypnea. Lungs clear to auscultation bilaterally. Gastrointestinal: Abdomen soft, nontender, with normoactive bowel sounds. No rebound or guarding. Neurological: Awake. Alert. Nonfocal, nonlateralizing. Skin: No rash. Normal color. No pallor. Musculoskeletal: No pedal edema. Full range of motion extremities. Const Vital Signs: 12/23/21 22:08 12/23/21 22:24 12/23/21 22:26 Temperature 97.8 F 98.2 F Temperature Source Temporal Oral Pulse Rate 84 83 Respiratory Rate 18 20 H Respiratory Effort Non-Labored Short of Breath Respiratory Depth Normal Respiratory Pattern Normal Blood Pressure 114/68 133/57 H Blood Pressure Mean 83 82 Pulse Ox 97 95 Oxygen Delivery Method Room Air Room Air Room Air 12/23/21 23:24 Temperature 98.2 F Temperature Source Oral Pulse Rate 83 Respiratory Rate 18 Respiratory Effort Respiratory Depth Respiratory Pattern Blood Pressure 131/62 H Blood Pressure Mean 85 Pulse Ox 96 Oxygen Delivery Method Room Air MDM MDM MDM Narrative Medical decision making narrative: Patient is afebrile. Pulse ox 97% on room air without evidence of hypoxia. He is describing URI type symptoms with viral syndrome. I will obtain a chest x- ray. Additionally he was swabbed for COVID and influenza. Chest x-ray in 1 view interpreted by myself shows no evidence of a pneumonia. No infiltrate or pneumothorax. I do not feel that antibiotics are indicated. His respiratory swabs for COVID and influenza are negative. Smoking cessation was discussed. At this point in time I feel he can be discharged safely home with follow-up. He will take [id number] medications as needed. I did write him a prescription for an albuterol inhaler to use every 4-6 hours as needed for shortness of breath. Should he spike a fever, he was told that he can always retest for COVID or influenza as he stated that his symptoms essentially began today. Disposition is discharged home in stable condition. Radiography Diagnostic Testing: Clinical Impression(s) from Imaging Studies Chest X-Ray 12/23/21 22:51 IMPRESSION: No acute cardiopulmonary disease or major interval change Electronically Signed: Skip Pollock DO at 23:10 EDT Reading Location ID and State: [facility] / [place] Tel [phone], Service support , Discharge Plan Triage Chief Complaint: Shortness of Breath ED Provider: Thierno Crump Dx/Rx/DC Orders Clinical Impression: SOB (shortness of breath), URI (upper respiratory infection), Viral syndrome Instructions: ED Dyspnea, ED Viral Syndrome (Adult), ED URI, Viral, No Abx (Adult) Prescriptions: New albuterol sulfate [Ventolin HFA] 90 mcg/actuation HFA aerosol inhaler 1 - 2 puff inhalation Q4H PRN PRN (Reason: Wheezing) Qty: 1 0RF Primary Care Provider: Constance Mcelroy NP Referrals: Constance Mcelroy NP, PROSTHODONTIST/EDUCATOR-C [Primary Care Provider] - 3-5 Days if not improving Activity Restrictions/Additional Instructions: Stop Smoking! Disposition Disposition: Home, Self Care
[2021-12-23 23:24] VITALS: BP 131/62; PULSE 83; RESP 18; TEMP 36.8; O2SAT 96
[2021-12-23 23:39] VITALS: BP 120/57; PULSE 83; RESP 16; O2SAT 94
== END 2021-12-23 23:47 | disposition home or self-care (01) ==
PROVIDERS: Emergency Provider Emergency Medicine; PCP Nurse Practitioner Primary Care; Visit Provider Emergency Medicine
DX: J06.9 Acute upper respiratory infection, unspecified (principal); R06.02 Shortness of breath; B34.9 Viral infection, unspecified; F17.210 Nicotine dependence, cigarettes, uncomplicated; F17.290 Nicotine dependence, other tobacco product, uncomplicated; Z28.310 Unvaccinated for COVID-19; Z20.822 Contact with and (suspected) exposure to COVID-19
CPT/HCPCS: 71045; 87428; 99282